=== PATIENT | male | born 1950 ===

== ENCOUNTER 2020-05-24 10:43 | Emergency (ER) | payer OTHER ==
[~2020-05-24] VITALS: Ht 167.6 cm; Wt 90.7 kg
[2020-05-24] MEDS ORDERED: ATORVASTATIN CA40 MG PO (11:09)
[2020-05-24] MEDS ORDERED: AMLODIPINE BESYL5 MG PO (11:09)
[2020-05-24] MEDS ORDERED: CHLORTHALIDONE25 MG PO (11:09)
[2020-05-24] MEDS ORDERED: EZETIMIBE10 MG PO (11:09)
[2020-05-24] MEDS ORDERED: FENOFIBRATE145 MG PO (11:09)
[2020-05-24] MEDS ORDERED: DONEPEZIL HCL10 MG PO (11:09)
[2020-05-24] MEDS ORDERED: GLIMEPIRIDE4 M1 PO (11:10)
[2020-05-24] MEDS ORDERED: LOSARTAN POTAS100 MG PO (11:10)
[2020-05-24] MEDS ORDERED: GABAPENTIN100 M2 PO (11:10)
[2020-05-24] MEDS ORDERED: METFORMIN HCL1000 M3 PO (11:11)
[2020-05-24] MEDS ORDERED: METOPROLOL SUC200 MG PO (11:11)
[2020-05-24] MEDS ORDERED: OXYBUTYNIN CHLOR5 M1 PO (11:11)
[2020-05-24] MEDS ORDERED: TAMSULOSIN HCL0.4 MG PO (11:11)
[2020-05-24] MEDS ORDERED: ADMELOG100 UNIT/1 SQ (11:12)
[2020-05-24] MEDS ORDERED: LANTUS INJ 100 (11:12)
== END 2020-05-24 20:21 | disposition home or self-care (01) ==
LOC: ER 10:43
DX: S30.0XXA Contusion of lower back and pelvis, initial encounter (principal); W18.39XA Other fall on same level, initial encounter; Y93.89 Activity, other specified; Y92.098 Other place in other non-institutional residence as the place of occurrence of the external cause; Y99.8 Other external cause status; E11.65 Type 2 diabetes mellitus with hyperglycemia